=== PATIENT | female | born 1980 | race Caucasian/White ===

== ENCOUNTER → 2018-01-30 | Outpatient (CLI) | payer OTHER ==
[~2018-01-30] MED LIST: CEFU500 PO; METH40 PO; PROM25 PO; PROM25S PR; Zofran4 MG PO
[2018-01-30 11:16] LABS: Source, Urine Clean Catch
[2018-01-30 12:58] LABS: Bilirubin, Urine Neg (Neg); Blood, Urine 1+ (Neg); Glucose Qualitative, Urine Neg (Neg); Ketones, Urine Neg (Neg); Leukocyte Esterase, Urine Neg (Neg); Nitrite, Urine Neg (Neg); Protein, Urine Neg (Neg); Specific Gravity, Urine 1.005 (1.003-1.022); Urobilinogen, Urine NORM (Normal)
[2018-01-30 13:42] LABS: Color, Urine Pale Yellow (P-Yellow)
[2018-01-30 13:43] LABS: Appearance, Urine Clear (Clear); Bacteria Not Seen /hpf; Red Blood Cells, Urine 0-2 /hpf (0-2); Squamous Epithelial Cells Few /hpf (Few); White Blood Cells, Urine Not Seen /hpf (0-5)
== END | disposition home or self-care (01) ==
LOC: LAB 09:39 → LAB SHORT 09:39
PROVIDERS: Obstetrics & Gynecology
DX: Z34.81 Encounter for supervision of other normal pregnancy, first trimester (principal)
CPT/HCPCS: 81001; 87086

== ENCOUNTER → 2018-02-05 | Outpatient (CLI) | payer OTHER ==
[2018-02-07 15:07] LABS: HPV 16 Negative (Negative); HPV 18 Negative (Negative); HPV OTHER HR TYPES Negative (Negative)
== END | disposition home or self-care (01) ==
LOC: LAB SHORT 12:09 → LAB 12:09
PROVIDERS: Obstetrics & Gynecology
DX: Z34.80 Encounter for supervision of other normal pregnancy, unspecified trimester (principal)
CPT/HCPCS: 87624; G0123

== ENCOUNTER → 2018-07-14 | Outpatient (CLI) | payer OTHER ==
[2018-07-14 16:45] LABS: Source, Urine Clean Catch
[2018-07-14 17:58] LABS: Appearance, Urine Cloudy (Clear); Bilirubin, Urine Neg (Neg); Blood, Urine 1+ (Neg); Color, Urine Yellow (P-Yellow); Glucose Qualitative, Urine Neg (Neg); Ketones, Urine Neg (Neg); Leukocyte Esterase, Urine 2+ (Neg); Nitrite, Urine Neg (Neg); Protein, Urine 2+ (Neg); Specific Gravity, Urine 1.015 (1.003-1.022); Urobilinogen, Urine NORM (Normal)
[2018-07-14 18:50] LABS: Amorphous Light (0-Heavy); Bacteria Mod /hpf; Red Blood Cells, Urine 0-2 /hpf (0-2); Squamous Epithelial Cells Mod /hpf (Few); White Blood Cells, Urine 0-2 /hpf (0-5)
== END | disposition home or self-care (01) ==
LOC: LAB 16:28 → LAB SHORT 16:28
PROVIDERS: Obstetrics & Gynecology
DX: R31.9 Hematuria, unspecified (principal)
CPT/HCPCS: 81001; 87086

== ENCOUNTER → 2018-07-28 | Outpatient (CLI) | payer OTHER | END | disposition home or self-care (01) | LOC: LAB SHORT 15:52 → LAB 15:52 | DX: Z34.80 Encounter for supervision of other normal pregnancy, unspecified trimester (principal) | CPT/HCPCS: 87081; 87653 ==

== ENCOUNTER 2018-08-12 02:58 | Inpatient (IN) | payer OTHER ==
[~2018-08-12] VITALS: Ht 170.2 cm; Wt 77.1 kg
[2018-08-12] MEDS ORDERED: Zantac150 MG PO (03:05)
[2018-08-12] MEDS ORDERED: CETI5 PO (03:05)
[2018-08-12 03:30] LABS: BASOPHILS ABSOLUTE AUTO 0.03 K/mm3 (0.00-0.23); BASOPHILS PERCENT AUTO 0 % (0-2); EOSINOPHILS ABSOLUTE AUTO 0.07 K/mm3 (0.00-0.68); EOSINOPHILS PERCENT AUTO 1 % (0-6); Hematocrit 36.1 % (33.0-51.0); Hemoglobin 11.6 g/dL (11.5-16.0); IMMATURE GRAN ABSOLUTE AUTO 0.06 K/mm3 (0.00-0.10); IMMATURE GRAN PERCENT AUTO 1 % (0-1); LYMPHOCYTES ABSOLUTE AUTO 2.39 K/mm3 (0.84-5.20); LYMPHOCYTES PERCENT AUTO 22 % (21-46); MONOCYTES ABSOLUTE AUTO 0.88 K/mm3 (0.16-1.47); MONOCYTES PERCENT AUTO 8 % (4-13); Mean Corpuscular HGB 28.4 pg (26.0-34.0); Mean Corpuscular HGB Conc 32.1 g/dL (31.5-36.5); Mean Corpuscular Volume 88 fL (80-100); Mean Platelet Volume 10.2 fL (9.1-12.4); NEUTROPHILS ABSOLUTE AUTO 7.64 K/mm3 (1.96-9.15); NEUTROPHILS PERCENT AUTO 69 % (41-73); Platelet Count 272 K/mm3 (150-400); RDW Standard Deviation 42.1 fL (35.1-46.3); Red Blood Cell Count 4.09 M/mm3 (3.80-5.20); White Blood Cell Count 11.07 K/mm3 (4.00-11.30)
[2018-08-13 06:00] LABS: Hematocrit 32.9 % (33.0-51.0); Hemoglobin 10.5 g/dL (11.5-16.0); Mean Corpuscular HGB 28.4 pg (26.0-34.0); Mean Corpuscular HGB Conc 31.9 g/dL (31.5-36.5); Mean Corpuscular Volume 89 fL (80-100); Mean Platelet Volume 10.3 fL (9.1-12.4); Platelet Count 249 K/mm3 (150-400); RDW Coefficient Variation 13.2 % (11.7-14.2); RDW Standard Deviation 42.8 fL (35.1-46.3); White Blood Cell Count 10.79 K/mm3 (4.00-11.30)
[2018-08-13] MEDS ORDERED: IBUP800 PO (09:51)
--- NOTE | 2018-08-13 10:48 | NUR ---
DISCHARGED AND WALKED OUT TO CAR WITH BABY AND FOB AT 1045. MOON
== END 2018-08-13 10:45 | disposition home or self-care (01) | DRG 807 ==
LOC: OBS 02:58 → BC 02:59 → OBS 03:10 → BC 03:11
PROVIDERS: ADMIT Obstetrics & Gynecology
PROC: 10E0XZZ Delivery of Products of Conception, External Approach (ICD-10-PCS; principal; 2018-08-12)
DX: O80 Encounter for full-term uncomplicated delivery (principal); Z37.0 Single live birth; Z3A.38 38 weeks gestation of pregnancy
CPT/HCPCS: 36415; 85025; 85027; 90471; 90707; J1885; J2590; J3010; J7120

== ENCOUNTER → 2019-11-20 | Outpatient (CLI) | payer OTHER ==
[~2019-11-20] MED LIST changes: +CETI5 PO; +IBUP800; +IBUP800 PO; +OMEP20ER PO; +PRENATAL TABLE1 EAC6 PO; +Zantac150 MG PO
== END | disposition home or self-care (01) ==
LOC: LAB 11:40 → LAB SHORT 11:40
DX: O09.523 Supervision of elderly multigravida, third trimester (principal)
CPT/HCPCS: 87081; 87653

== ENCOUNTER 2019-12-07 09:00 | Inpatient (IN) | payer OTHER ==
[~2019-12-07] VITALS: Ht 170.2 cm; Wt 77.1 kg
[~2019-12-07 09:00] MED LIST changes: -IBUP800; -OMEP20ER PO; -PRENATAL TABLE1 EAC6 PO
[2019-12-07] MEDS ORDERED: OMEP20ER PO (09:44)
[2019-12-07] MEDS ORDERED: PRENATAL TABLE1 EAC6 PO (09:44)
--- NOTE | 2019-12-07 10:04 | NUR ---
PT REPORTS VERY HARD IV START AT BEGINING OF ATTEMPTS, PT REPORTS USUALLY TAKES MANY TRIES. JOSE ALEJANDRO ENGLE AND JOSE ALEJANDRO CALVO CHARGE, TRIED 2 TIMES EACH, THEN CALLED JOHN EPPERSON RN TO COME WITH ULTRASOUND MACHINE, AND WAS ABLE TO GET ONE, PT WAS VERY ANXIOUS WITH IV START AND BABY WAS TACHYCARDIC OFF AND ON DURING THE IV ATTEMPTS
[2019-12-07 10:18] LABS: BASOPHILS ABSOLUTE AUTO 0.03 K/mm3 (0.00-0.23); BASOPHILS PERCENT AUTO 0 % (0-2); EOSINOPHILS ABSOLUTE AUTO 0.07 K/mm3 (0.00-0.68); EOSINOPHILS PERCENT AUTO 0 % (0-6); Hematocrit 33.2 % (33.0-51.0); Hemoglobin 10.2 g/dL (11.5-16.0); IMMATURE GRAN ABSOLUTE AUTO 0.09 K/mm3 (0.00-0.10); IMMATURE GRAN PERCENT AUTO 1 % (0-1); LYMPHOCYTES ABSOLUTE AUTO 2.32 K/mm3 (0.84-5.20); LYMPHOCYTES PERCENT AUTO 15 % (21-46); MONOCYTES ABSOLUTE AUTO 1.01 K/mm3 (0.16-1.47); MONOCYTES PERCENT AUTO 7 % (4-13); Mean Corpuscular HGB 25.1 pg (26.0-34.0); Mean Corpuscular HGB Conc 30.7 g/dL (31.5-36.5); Mean Corpuscular Volume 82 fL (80-100); NEUTROPHILS PERCENT AUTO 77 % (41-73); Platelet Count 369 K/mm3 (150-400); RDW Coefficient Variation 14.2 % (11.7-14.2); RDW Standard Deviation 41.2 fL (35.1-46.3); Red Blood Cell Count 4.07 M/mm3 (3.80-5.20); White Blood Cell Count 15.62 K/mm3 (4.00-11.30)
--- NOTE | 2019-12-07 16:49 | NUR ---
RN ROUNDED TO HELP W/ . EXPERIENCED MOM. 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 INSTRUCTED PT TO CONTINUE TO BREASTFEED ON BOTH SIDES. W/ LAST BABY PT WAS INSTRUCTED BY LC NOT TO PUMP ON AFFECTED SIDE. RN UNABLE TO FIND NOTES FROM PREVIOUS . PT GAVE PERMISSION TO CONSULT W/ AUNG YUAN. AUNG AGREES SHOULD BE OK TO FEED ON AFFECTED SIDE AND SEE WHAT IS PRODUCED. FURTHER SUPPORT OFFERED IF PT DESIRES. PARENTS LOVING W/ NB, DENY ANY FURTHER QUESTIONS OR CONCERNS.
[2019-12-08 08:00] LABS: Hematocrit 32.2 % (33.0-51.0); Hemoglobin 9.8 g/dL (11.5-16.0); Mean Corpuscular HGB 25.2 pg (26.0-34.0); Mean Corpuscular HGB Conc 30.4 g/dL (31.5-36.5); Mean Corpuscular Volume 83 fL (80-100); Mean Platelet Volume 10.2 fL (9.1-12.4); Platelet Count 315 K/mm3 (150-400); RDW Coefficient Variation 14.2 % (11.7-14.2); RDW Standard Deviation 41.9 fL (35.1-46.3); Red Blood Cell Count 3.89 M/mm3 (3.80-5.20); White Blood Cell Count 15.21 K/mm3 (4.00-11.30)
[2019-12-08] MEDS ORDERED: IBUP800 (11:22)
--- NOTE | 2019-12-08 15:26 | NUR ---
RN ROUNDED TO HELP W/ . PT STATES WENT WELL THROUGH THE NIGHT. DENIES ANY FURTHER QUESTIONS OR CONCERNS. FURTHER SUPPORT OFFERRED IF PT DESIRES.
== END 2019-12-08 20:35 | disposition home or self-care (01) | DRG 807 ==
LOC: BC 09:00 → OBS 09:00 → BC 09:14
PROVIDERS: ADMIT Obstetrics & Gynecology
PROC: 10E0XZZ Delivery of Products of Conception, External Approach (ICD-10-PCS; principal; 2019-12-07)
PROC: 10D17Z9 Manual Extraction of Products of Conception, Retained, Via Natural or Artificial Opening (ICD-10-PCS; 2019-12-07)
PROC: 10907ZC Drainage of Amniotic Fluid, Therapeutic from Products of Conception, Via Natural or Artificial Opening (ICD-10-PCS; 2019-12-07)
PROC: 00HU33Z Insertion of Infusion Device into Spinal Canal, Percutaneous Approach (ICD-10-PCS; 2019-12-07)
PROC: 3E0R3BZ Introduction of Anesthetic Agent into Spinal Canal, Percutaneous Approach (ICD-10-PCS; 2019-12-07)
DX: O75.89 Other specified complications of labor and delivery (principal); Z37.0 Single live birth; O72.2 Delayed and secondary postpartum hemorrhage; Z3A.39 39 weeks gestation of pregnancy
CPT/HCPCS: 36415; 51702; 85025; 85027; 86850; 86900; 86901; A9270; J0690; J1885; J2001; J2590; J3010; J7120

== ENCOUNTER → 2022-03-22 | Outpatient (CLI) | payer OTHER ==
[~2022-03-22] MED LIST changes: +IBUP800; +OMEP20ER PO; +PRENATAL TABLE1 EAC6 PO
== END ==
LOC: LAB 17:00 → LAB SHORT 17:00
DX: R30.9 Painful micturition, unspecified (principal); R10.9 Unspecified abdominal pain; M54.9 Dorsalgia, unspecified
CPT/HCPCS: 87086

== ENCOUNTER 2022-03-23 16:51 | Emergency (ER) | payer OTHER ==
[~2022-03-23] VITALS: Ht 170.2 cm; Wt 74.8 kg
[2022-03-23 18:42] LABS: BASOPHILS ABSOLUTE AUTO 0.02 K/mm3 (0.00-0.23); BASOPHILS PERCENT AUTO 0 % (0-2); EOSINOPHILS ABSOLUTE AUTO 0.05 K/mm3 (0.00-0.68); EOSINOPHILS PERCENT AUTO 1 % (0-6); Hematocrit 42.3 % (33.0-51.0); Hemoglobin 14.8 g/dL (11.5-16.0); IMMATURE GRAN ABSOLUTE AUTO 0.02 K/mm3 (0.00-0.10); IMMATURE GRAN PERCENT AUTO 0 % (0-1); LYMPHOCYTES ABSOLUTE AUTO 1.79 K/mm3 (0.84-5.20); LYMPHOCYTES PERCENT AUTO 28 % (21-46); MONOCYTES ABSOLUTE AUTO 0.48 K/mm3 (0.16-1.47); MONOCYTES PERCENT AUTO 8 % (4-13); Mean Corpuscular HGB 31.7 pg (26.0-34.0); Mean Corpuscular Volume 91 fL (80-100); Mean Platelet Volume 9.8 fL (9.1-12.4); NEUTROPHILS ABSOLUTE AUTO 4.08 K/mm3 (1.96-9.15); NEUTROPHILS PERCENT AUTO 63 % (41-73); Platelet Count 298 K/mm3 (150-400); RDW Coefficient Variation 12.1 % (11.7-14.2); Red Blood Cell Count 4.67 M/mm3 (3.80-5.20); White Blood Cell Count 6.44 K/mm3 (4.00-11.30)
[2022-03-23 19:00] LABS: Albumin/Globulin Ratio 1.1 (0.8-1.8); Bilirubin, Total 0.4 mg/dL (0.1-1.0); Bun/Creatinine Ratio 19.6 (12.0-20.0); Calcium, Blood 9.3 mg/dL (8.5-10.1); Creatinine, Blood 0.56 mg/dL (0.40-1.00); Globulin, Blood 3.7 g/dL (2.2-4.0); Potassium, Blood 4.2 mmol/L (3.5-5.5); Total Protein, Blood 7.7 g/dL (6.4-8.2)
== END 2022-03-24 01:28 | disposition home or self-care (01) ==
LOC: ER 16:51
PROVIDERS: Physician Assistant
DX: R10.9 Unspecified abdominal pain (principal); R11.0 Nausea; Z88.1 Allergy status to other antibiotic agents; Z79.899 Other long term (current) drug therapy
CPT/HCPCS: 36415; 74176; 80053; 83690; 85025; A9270; J1885; J2405

== ENCOUNTER → 2022-10-17 | Outpatient (CLI) | payer OTHER | LOC: PLD 12:26 → LAB SHORT 12:26 | DX: D48.5 Neoplasm of uncertain behavior of skin (principal) | CPT/HCPCS: 88305 ==

== ENCOUNTER → 2024-08-29 | Outpatient (CLI) | payer OTHER | END | disposition home or self-care (01) | LOC: LAB SHORT 14:51 → LAB 14:51 | DX: M79.604 Pain in right leg (principal) | CPT/HCPCS: 85379 ==

== ENCOUNTER → 2025-01-15 | Outpatient (CLI) | payer OTHER ==
[2025-01-15 14:57] LABS: Bacterial Vaginosis PCR Negative (NEGATIVE); Candida Group, PCR NOT DETECTED (NOT DETECT); Candida glabrata-krusei, PCR NOT DETECTED (NOT DETECT)
== END ==
LOC: LAB SHORT 13:15 → LAB 13:15
PROVIDERS: Obstetrics & Gynecology
DX: Z01.419 Encounter for gynecological examination (general) (routine) without abnormal findings (principal); N76.0 Acute vaginitis
CPT/HCPCS: 81515; 87624; G0145

== ENCOUNTER → 2025-02-19 | Outpatient (CLI) | payer OTHER | END | disposition home or self-care (01) | LOC: LAB 08:37 → LAB SHORT 08:37 | DX: N84.2 Polyp of vagina (principal) | CPT/HCPCS: 88305 ==